=== PATIENT | male | born 2000 | race African-American/Black ===

== ENCOUNTER 2022-03-16 12:19 | Emergency (ER) | payer OTHER, SELFPAY ==
--- NOTE | 2022-03-16 12:22 | ED.MALEGU ---
HPI - Male Genitourinary General Chief complaint: Urogenital-Male Stated complaint: STD/STI check Time Seen by Provider: 03/16/22 12:22 Source: patient and RN notes reviewed History of Present Illness HPI Narrative: Patient is a 22-year-old male who presents the urgent care with request for STD testing. Patient states that he has not no concern for STD and denies of any symptoms. Patient denies of any known exposure to STD and states that he just does not have time to go to a local clinic because of his work schedule. Patient is currently not requesting any treatment. No other acute complaints. No acute distress noted. Patient aware of the plan of care. Some parts of this dictation were generated by voice recognition software and may contain typographical and/or grammatical inaccuracies. Related Data Home Medications Medication Instructions Recorded Confirmed No Home Medications 03/16/22 03/16/22 Allergies Allergy/AdvReac Type Severity Reaction Status Date / Time No Known Allergies Allergy Verified 03/16/22 12:29 Review of Systems Review of Systems: CONSTITUTIONAL: Denies fever, chills, or sweats. EYES: Denies visual changes, redness, or discharge. ENT: Denies rhinorrhea, congestion, sore throat, or otalgia. CARDIOVASCULAR: Denies chest pain, palpitations, or edema. RESPIRATORY: Denies cough or dyspnea. GASTROINTESTINAL: Denies abdominal pain, nausea, vomiting, or diarrhea. GENITOURINARY: Denies dysuria or hematuria. SKIN: Denies rash or itching. MUSCULOSKELETAL: Denies back pain, joint pain, or myalgia. NEUROLOGIC: Denies headache, numbness, or weakness. All other systems reviewed are negative, except as documented in HPI. PMFSH Comments At the time of my signature, I reviewed and agree with the nursing past medical, surgical, social, and family history. There is no relevant family history pertinent to the patient complaint. Exam Narrative: GENERAL: This is a well-nourished, well-developed patient, in no apparent distress. HEAD: normocephalic, atraumatic. EYES: PERRL. Sclera clear/white. Vision is grossly intact. EARS: External ears normal NOSE: External nose normal with no obvious nasal discharge, nares without redness, no rhinorrhea. THROAT: Mucous membranes moist NECK: Neck supple SKIN: warm, intact with no suspicious lesions or rash, good texture and turgor. NEURO: awake, alert, and oriented to person, place and time. There were no obvious focal neurologic abnormalities. EXTREMITIES: No clubbing, cyanosis, or edema. Course Course Level of Care: Express Care Visit Vital Signs Vital signs: Vital Signs Temperature 96.8 F L 03/16/22 12:30 Pulse Rate 58 L 03/16/22 12:30 Respiratory Rate 16 03/16/22 12:30 Blood Pressure 130/74 03/16/22 12:30 Pulse Oximetry 99 03/16/22 12:30 Temperature 96.8 F L 03/16/22 12:30 Pulse Rate 58 L 03/16/22 12:30 Respiratory Rate 16 03/16/22 12:30 Blood Pressure 130/74 03/16/22 12:30 Pulse Oximetry 99 03/16/22 12:30 Reviewed MDM - Male Genitourinary MDM Narrative Medical decision making narrative: Considering you are currently not symptomatic and looking for treatment, we will call based on your results and treat appropriately if necessary at that time. Advised the patient to refrain from any sexual activity until his results are back considering his possible concern for STD. Testing takes approximately 1 week and we only test for gonorrhea, chlamydia and trichomonas. In the future it is most appropriate to go to an STD clinic or to the local health department for a full gamut of STD testing. We are not a routine testing site. Follow-up with your PCP within 2 to 5 days or for worsening symptoms or failure to improve. Patient states that this was just his yearly general STD test . States that he did not have time to go to a clinic and was just wanting his yearly testing completed. Patient denies of any known exposure to an STD. State
[2022-03-16 12:30] VITALS: BP 130/74; PULSE 58; RESP 16; TEMP 36; O2SAT 99
== END 2022-03-16 12:39 | disposition home or self-care (01) ==
PROVIDERS: Emergency Provider Nurse Practitioner Family
DX: Z72.51 High risk heterosexual behavior (principal)
CPT/HCPCS: 87491; 87591; 87661; 99213; G0463

== ENCOUNTER 2023-09-14 10:30 | Emergency (ER) | payer OTHER, SELFPAY ==
[2023-09-14 10:27] VITALS: BP 157/99; PULSE 89
--- NOTE | 2023-09-14 10:51 | ED.GENADULT ---
HPI - General Adult General Chief complaint: Psychiatric Symptoms <Lisa Alonso PA-C - Last Filed: 09/15/23 14:46> Stated complaint: strange behavior <Lisa Alonso PA-C - Last Filed: 09/15/23 14:46> Time Seen by Provider: 09/14/23 10:32 <Lisa Alonso PA-C - Last Filed: 09/15/23 14:46> Source: patient and EMS <Lisa Alonso PA-C - Last Filed: 09/15/23 14:46> Mode of arrival: EMS <Lisa Alonso PA-C - Last Filed: 09/15/23 14:46> Limitations: altered mental status <Lisa Alonso PA-C - Last Filed: 09/15/23 14:46> History of Present Illness HPI narrative: This is a 23 year old male that presents to the ER for abnormal behavior. Reportedly patient was knocking on doors around his dorm room and acting erratically. Patient was threatening to harm others. Patient noted to be responding to internal stimuli in the ED. He does not report any medical problems currently. Does endorse alcohol and drug use. <Lisa Alonso PA-C - Last Filed: 09/15/23 14:46> Related Data Allergies/adverse reactions: Allergies Allergy/AdvReac Type Severity Reaction Status Date / Time No Known Allergies Allergy Verified 03/16/22 12:29 <Lisa Alonso PA-C - Last Filed: 09/15/23 14:46> Review of Systems Review of Systems: CONSTITUTIONAL: Denies fever PSYCHIATRIC: Denies anxiety or depression. <Lisa Alonso PA-C - Last Filed: 09/15/23 14:46> All systems reviewed & are unremarkable except as noted in HPI and below <Lisa Alonso PA-C - Last Filed: 09/15/23 14:46> [facility] Past Medical History Medical History: Medical History (Updated 09/14/23 @ 19:04 by Lisa Alonso PA-C) No active medical problems <Lisa Alonso PA-C - Last Filed: 09/15/23 14:46> Social History Social History: Social History (Updated 09/14/23 @ 10:55 by Lisa Alonso PA-C) Alcohol intake: current Substance use type: marijuana and crack/cocaine <Lisa Alonso PA-C - Last Filed: 09/15/23 14:46> Exam Narrative: GENERAL: Well-appearing, well-nourished, and in no acute distress. HEAD: Normocephalic, atraumatic. EYES: EOMI. CHEST: No respiratory distress. HEART: Regular rate EXTREMITIES: Normal range of motion. No edema. SKIN: Warm, dry, no rash. NEURO: No focal deficits. Alert and oriented x1. Normal gait PSYCH: Responding to internal stimuli. Not answering questions appropriately <Lisa Alonso PA-C - Last Filed: 09/15/23 14:46> Course Course Emergency Course: Spoke with patient's mother who reports this is not normal for him. He has no previous psychiatric history <Lisa Alonso PA-C - Last Filed: 09/15/23 14:46> Spoke with patient's mother who reports this is not normal for him. He has no previous psychiatric history. KEVIN 0110: involuntary admission papers signed. I examined the patient who continues to answer questions inappropriately at times. He is redirectable but has been wandering the halls the department intermittently. He is paranoid about the test results that we are giving him including a positive COVID test. distal denies SI or HI. Seems to respond to internal stimuli at times. Able speak with patient's mother, who confirmed that he has been having episodes where he will talk to her on the phone and answer questions inappropriately/nonsensical and then abruptly hang up. She denies any significant psychiatric history for the patient. Patient will be handed off to attending Dr. Hopkins pending bed placement. <Anil Samano PA-C - Last Filed: 09/15/23 03:18> Vital Signs Vital signs: Vital Signs Pulse Rate 89 09/14/23 10:27 Blood Pressure 157/99 H 09/14/23 10:27 Temperature 98.3 F 09/15/23 13:55 Pulse Rate 68 09/15/23 13:55 Respiratory Rate 16 09/15/23 13:55 Blood Pressure 116/69 09/15/23 13:55 Pulse Oximetry 100 09/15/23 13:55 <Lisa Alonso PA-C - Last Filed: 1
--- NOTE | 2023-09-14 11:04 | PC.NURSE ---
Attempted blood draw on pt. Pt moved and this RN was unable to obtain a red top tube. Pt refused another needle stick. PA aware.
[2023-09-14 11:08] LABS: Alanine Aminotransferase 16 U/L (6-50); Albumin Level 4.4 g/dL (3.5-5.1); Alkaline Phosphatase 93 U/L (38-126); Anion Gap 10 mmol/L (8-16); Aspartate Amino Transferase 26 U/L (17-59); Bilirubin,Total 0.7 mg/dL (0.2-1.3); Blood Urea Nitrogen 11 mg/dL (9-20); Calcium 9.2 mg/dL (8.4-10.2); Carbon Dioxide 23 mmol/L (22-30); Chloride 106 mmol/L (98-107); Estimated CRCL calculation 110 ml/min; Estimated Glomerular Filt Rate > 60; Glucose 123 mg/dL (65-110); Potassium 3.8 mmol/L (3.4-5.0); Sodium 139 mmol/L (137-145)
[2023-09-14 11:18] LABS: Basophils Percent Auto 0.5 % (0.2-1.2); Eosinophils Absolute Auto 0.1 K/mm3 (0-0.3); Eosinophils Percent Auto 1.4 % (0-4.4); Hematocrit 42.1 % (42.0-52.0); Immature Granulocyte Absolute 0.02 K/mm3 (0.00-0.031); Immature Granulocyte Percent A 0.3 % (0-0.5); Lymphocytes Absolute Auto 1.41 K/mm3 (0.9-3.2); Lymphocytes Percent Auto 23.9 % (18.3-44.2); Mean Corpuscular HGB Conc 33.3 g/dl (32-36); Mean Corpuscular Hemoglobin 30.6 pg (26-34); Mean Corpuscular Volume 91.9 fl (80-100); Mean Platelet Volume 9.9 fl (7.4-10.4); Monocytes Absolute Auto 0.6 K/mm3 (0.1-0.6); Monocytes Percent Auto 9.7 % (2.6-8.5); Neutrophils Absolute Auto 3.8 K/mm3 (1.3-6.7); Neutrophils Percent Auto 64.2 % (45.5-73.1); Platelet Count Result 387 k/mm3 (150-375); Red Blood Count 4.58 M/mm3 (4.6-6.20); Red Cell Distribution Width 13.1 % (11.5-14.5); White Blood Count 5.9 K/mm3 (4.5-10.0)
[2023-09-14 11:27] LABS: Appearance Urine Clear (Clear); Bacteria Urine None Seen /hpf; Bilirubin Urine Negative (Negative); Blood Urine Negative (Negative); Color Urine Dark Yellow (Yellow); Glucose Urine UA Negative (Negative); Ketones Urine Trace mg/dL (Negative); Leukocyte Esterase Ur Negative LEU/UL (Negative); Nitrate Urine Negative (Negative); Non Pathogenic Casts 0-2; Protein Urine 1+ mg/dL (Negative); RBC Urine 0-2 /hpf (0-2); Squamous Epithelial Cell Urine None seen /hpf (Few); WBC Urine 0-5 /hpf; pH Urine 5.5 (5.0-9.0)
[2023-09-14 11:36] LABS: Ethanol < 10 mg/dL (<10)
[2023-09-14 11:37] LABS: Add Urine Microscopic? YES; Specific Grav Ur 1.036 (1.001-1.035)
[2023-09-14 11:49] LABS: Amphetamine Screen Urine Negative (Negative); Barbiturate Screen Urine Negative (Negative); Benzodiazepines Screen Urine Negative (Negative); Cannabinoid Screen Urine Positive (Negative); Cocaine Screen Urine Negative (Negative); Methadone Screen Urine Negative (Negative); Opiate Screen Urine Negative (Negative); Phencyclidine Screen Urine Negative (Negative)
[2023-09-14] MEDS: LORazepam INJ (*CRX) 2 MG/ML VIAL IM (11:50)
[2023-09-14] MEDS: HALOPERIDOL LACTATE 5 MG/ML VIAL IM (11:50)
--- NOTE | 2023-09-14 12:02 | PC.NURSE ---
Food tray ordered for pt
--- NOTE | 2023-09-14 12:03 | PC.NURSE ---
Pt was walking in the [place]onso, wandering into pts rooms. PHYLICIA Gonzalez gave verbal orders for 2mg of Ativan IM and 5mg of Haldol IM. Pt was redirected to room and IM medications were administered.
--- NOTE | 2023-09-14 12:05 | PC.NURSE ---
Upon pts arrival he was making repetitive statements, trying to close the door, and acting in bizarre behaviors.
[2023-09-14 13:01] LABS: Influenza A QL RT-PCR Negative (Negative); Influenza B QL RT-PCR Negative (Negative); SARS-CoV-2 RNA PCR Positive (Negative)
[2023-09-14 13:08] VITALS: O2SAT 100
--- NOTE | 2023-09-14 19:01 | PC.NURSE ---
1730 pt attempting to walk into other pts room. Pt redirected several times. Before compliment
--- NOTE | 2023-09-14 19:03 | PC.NURSE ---
Pt asleep with reg resp. Left undisturbed
[2023-09-14 19:16] VITALS: BP 140/88; PULSE 88; RESP 18; TEMP 36.6; O2SAT 99
--- NOTE | 2023-09-14 19:23 | PC.NURSE ---
Crisis counselor here pt report given.
--- NOTE | 2023-09-14 19:51 | PC.NURSE ---
Pt refusing VS at this time.
--- NOTE | 2023-09-14 20:02 | PC.NURSE ---
Pt at nurse's station after crisis eval wanting his clothes and phone. Pt is redirectable and went back into room to lay down.
--- NOTE | 2023-09-14 21:39 | PC.NURSE ---
Pt remains calm and cooperative at this time. Does have security speaking with him due to request.
--- NOTE | 2023-09-14 21:49 | PC.NURSE ---
Received a call from [facility]ake, who states they cannot accept due to +covid.
--- NOTE | 2023-09-14 21:53 | PC.NURSE ---
Received a call from [facility] in [place] who states they also cannot take the pt due to his covid status.
--- NOTE | 2023-09-14 22:44 | PC.NURSE ---
Pt sleeping quietly per bed, resp even and nonlabored.
--- NOTE | 2023-09-15 02:30 | PC.NURSE ---
Mother at bedside.
--- NOTE | 2023-09-15 03:30 | PC.NURSE ---
Mother, Aimee, would like to be contacted if pt gets placement.
--- NOTE | 2023-09-15 04:20 | PC.NURSE ---
Pt resting quietly per cart. Resp even and nonlabored. Mother has left for the night, but will return in the am.
--- NOTE | 2023-09-15 07:06 | PC.NURSE ---
Report to JAIR White
[2023-09-15 08:00] VITALS: BP 116/68; PULSE 72; RESP 16; TEMP 36.8; O2SAT 100
--- NOTE | 2023-09-15 10:12 | PC.NURSE ---
mom looking for pt's phone and keys and neither item is with his belongings. Call [place] nonemergent number and police did not collect any of pt's belongings, mother notified.
--- NOTE | 2023-09-15 12:36 | PC.NURSE ---
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
[2023-09-15 13:55] VITALS: BP 116/69; PULSE 68; RESP 16; TEMP 36.8; O2SAT 100
== END 2023-09-15 13:55 | disposition home or self-care (01) ==
PROVIDERS: Physician Assistant; Emergency Provider Emergency Medicine
DX: R44.3 Hallucinations, unspecified (principal); F91.9 Conduct disorder, unspecified; Z20.822 Contact with and (suspected) exposure to COVID-19
CPT/HCPCS: 36415; 80053; 80307; 81001; 84443; 85025; 87636; 96372; 99284; J1630; J2060